=== PATIENT | female | born 1985 | race African-American/Black ===

== ENCOUNTER 2016-11-21 15:16 | Emergency (ER) | payer MEDICAID ==
[~2016-11-21] VITALS: Ht 167.6 cm; Wt 158.0 kg
[~2016-11-21 15:16] MED LIST: ALBU1.25 NEB; RANI150T8 PO
[2016-11-21] MEDS ORDERED: DIPHENHYDRAMINE 50 MG/ML, 1ML IVPush ONE (16:00)
[2016-11-21] MEDS ORDERED: SODIUM CHLORIDE 0.9% 1,000ML IVBOLUS ONE (16:00)
[2016-11-21] MEDS ORDERED: SODIUM CHLORIDE FLUSH 10ML SYR IVF ONE (16:00)
[2016-11-21] MEDS ORDERED: METOCLOPRAMIDE 5 MG/ML, 2ML IVPush ONE (16:00)
[2016-11-21] MEDS ORDERED: KETOROLAC 30 MG/1 ML IVPush ONE (16:00)
[2016-11-21] MEDS ORDERED: KETOROLAC 30 MG/1 ML ONE (16:35)
[2016-11-21] MEDS ORDERED: METOCLOPRAMIDE 5 MG/ML, 2ML ONE (16:35)
[2016-11-21] MEDS ORDERED: DIPHENHYDRAMINE 50 MG/ML, 1ML ONE (16:35)
[2016-11-21] MEDS ORDERED: DIPHENHYDRAMINE 25 MG CAPSULE ONE (17:21)
[2016-11-21 17:43] LABS: ASPARTATE AMINO TRANSFERASE 9 U/L (15-37); BLOOD UREA NITROGEN 9 mg/dL (7-18)
[2016-11-21] MEDS ORDERED: DIPHENHYDRAMINE 25 MG CAPSULE PO ONE (18:00)
[2016-11-21] MEDS ORDERED: KETOROLAC 30 MG/1 ML IM ONE (18:00)
[2016-11-21] MEDS ORDERED: METOCLOPRAMIDE 10MG TABLET PO ONE (18:00)
[2016-11-21 18:11] VITALS: BP 131/70
[2016-11-21] MEDS ORDERED: DEXAMETHASONE 4 MG TABLET ONE (18:58)
[2016-11-21] MEDS ORDERED: DEXAMETHASONE 4 MG TABLET PO ONE (19:00)
== END 2016-11-21 19:31 | disposition home or self-care (01) ==
LOC: ED 18:00
DX: G44.209 Tension-type headache, unspecified, not intractable (principal); J45.909 Unspecified asthma, uncomplicated; K21.9 Gastro-esophageal reflux disease without esophagitis; F17.200 Nicotine dependence, unspecified, uncomplicated
CPT/HCPCS: 36415; 70450; 80053; 84703; 85025; 96372; 99285; J1885; Q0163

== ENCOUNTER 2019-07-09 19:18 | Outpatient (CLI) | payer MEDICAID ==
[~2019-07-09] VITALS: Ht 170.2 cm; Wt 159.0 kg
[~2019-07-09 19:18] MED LIST changes: +RANI-467 PO; -RANI150T8 PO
[2019-07-09 19:25] VITALS: BP 135/63
[2019-07-09 19:45] LABS: MICROSCOPIC NOT IND
[2019-07-09 20:03] LABS: AMPHETAMINE SCREEN, URINE Negative (Negative); BARBITURATE SCREEN, URINE Negative (Negative); BENZODIAZEPINE SCREEN, URINE Negative (Negative); CANNABINOID SCREEN, URINE Negative (Negative); COCAINE SCREEN, URINE Negative (Negative); METHADONE SCREEN, URINE Negative (Negative); OPIATE SCREEN, URINE Negative (Negative)
[2019-07-09] MEDS ORDERED: METF500T17 PO (20:15)
[2019-07-09] MEDS ORDERED: NPH,100V SQ (20:15)
[2019-07-09 20:47] LABS: ALANINE AMINOTRANSFERASE 18 U/L (12-78); ALBUMIN 2.8 g/dL (3.4-5.0); ANION GAP 7 mmol/L (5-15); BILIRUBIN, DIRECT 0.1 mg/dL (0.1-0.2); CALCIUM 8.9 mg/dL (8.5-10.1); CHLORIDE 109 mmol/L (98-107)
[2019-07-09 20:49] LABS: ALKALINE PHOSPHATASE 70 U/L (45-117); BILIRUBIN,TOTAL 0.4 mg/dL (0.2-1.0)
[2019-07-09 20:52] LABS: BASOPHILS % (AUTO) 0 % (0-1); EOSINOPHILS % (AUTO) 1 % (1-7); LYMPHOCYTES # (AUTO) 1.76 x10^3/uL (1-3.4); LYMPHOCYTES % (AUTO) 21 % (22-44); MD NO; MEAN CORPUSCULAR HEMOGLOBIN 29.6 pg (27.0-34.8); MEAN CORPUSCULAR HGB CONC 33.1 g/dL (32.4-35.8); MEAN CORPUSCULAR VOLUME 89.6 fL (80-100); MEAN PLATELET VOLUME 10.1 fL (7.4-10.4); MONOCYTES % (AUTO) 4 % (2-9); NEUTROPHILS # (AUTO) 6.35 x10^3/uL (1.8-6.8); NEUTROPHILS % (AUTO) 75 % (42-75); PLATELET COUNT 222 x10^3/uL (130-400); RED BLOOD COUNT 3.32 x10^6/uL (3.82-5.3); RED CELL DISTRIBUTION WIDTH 15.8 % (9.6-15.2)
== END 2019-07-09 22:00 | disposition home or self-care (01) ==
LOC: LDOP 19:18
PROVIDERS: ATTEND Obstetrics & Gynecology
DX: O26.893 Other specified pregnancy related conditions, third trimester (principal); Z3A.32 32 weeks gestation of pregnancy; R10.9 Unspecified abdominal pain
CPT/HCPCS: 36415; 59025; 80053; 80307; 81003; 82248; 82570; 84156; 84550; 85025; 87086; 99211; G0463